=== PATIENT | female | born 1990 | race Two or more races ===

== ENCOUNTER → 2017-12-06 | Emergency (ER) | payer OTHER ==
[~2017-12-06] VITALS: Ht 154.9 cm; Wt 50.8 kg
[~2017-12-06] MED LIST: KETO10TA2 PO; NITROFURANTOIN100 MG PO; URIN D.S. TABL1 EACH PO
== END | disposition home or self-care (01) ==
LOC: ER 08:06
DX: N39.0 Urinary tract infection, site not specified (principal); R10.32 Left lower quadrant pain

== ENCOUNTER → 2020-02-06 | Outpatient (CLI) | payer OTHER | END | disposition home or self-care (01) | LOC: PRENATAL 11:30 | PROVIDERS: ATTEND Obstetrics & Gynecology | DX: O26.843 Uterine size-date discrepancy, third trimester (principal); O36.8131 Decreased fetal movements, third trimester, fetus 1; O36.5931 Maternal care for other known or suspected poor fetal growth, third trimester, fetus 1; O35.0XX1 Maternal care for (suspected) central nervous system malformation in fetus, fetus 1 ==

== ENCOUNTER 2020-02-11 13:02 | Inpatient (IN) | payer OTHER ==
[~2020-02-11] VITALS: Ht 154.9 cm; Wt 68.0 kg
[2020-02-11] MEDS ORDERED: PRENATAL TABLE1 EAC1 PO (13:41)
== END 2020-02-15 13:51 | DRG 807 ==
LOC: LDR 13:02 → OB/GYN 02-12 18:53
PROVIDERS: ADMIT Obstetrics & Gynecology; ATTEND Obstetrics & Gynecology
PROC: 4A1HXCZ Monitoring of Products of Conception, Cardiac Rate, External Approach (ICD-10-PCS; 2020-02-11)
PROC: 10E0XZZ Delivery of Products of Conception, External Approach (ICD-10-PCS; principal; 2020-02-12)
DX: O36.5931 Maternal care for other known or suspected poor fetal growth, third trimester, fetus 1 (principal); Z37.0 Single live birth; Z3A.37 37 weeks gestation of pregnancy

== ENCOUNTER 2021-08-14 09:05 | Emergency (ER) | payer OTHER ==
[~2021-08-14] VITALS: Ht 154.9 cm; Wt 49.9 kg
[~2021-08-14 09:05] MED LIST changes: +PRENATAL TABLE1 EAC1 PO
[2021-08-14] MEDS ORDERED: CIPRO500 MG PO (09:49)
== END 2021-08-14 13:09 | disposition home or self-care (01) ==
LOC: ER 09:05
DX: N39.0 Urinary tract infection, site not specified (principal); N23 Unspecified renal colic

== ENCOUNTER 2022-03-31 09:17 | Emergency (ER) | payer OTHER ==
[~2022-03-31] VITALS: Ht 152.4 cm; Wt 49.9 kg
[~2022-03-31 09:17] MED LIST changes: +CIPRO500 MG PO
== END 2022-03-31 12:56 | disposition home or self-care (01) ==
LOC: ER 09:17
DX: M54.2 Cervicalgia (principal); R30.0 Dysuria

== ENCOUNTER 2022-09-14 08:43 | Emergency (ER) | payer OTHER ==
[~2022-09-14] VITALS: Ht 157.5 cm; Wt 45.4 kg
[2022-09-14] MEDS ORDERED: PEPCID AC20 MG PO (13:18)
[2022-09-14] MEDS ORDERED: ONDANSETRON ODT4 MG PO (13:18)
== END 2022-09-14 13:32 ==
LOC: ER 08:43
DX: K52.9 Noninfective gastroenteritis and colitis, unspecified (principal); Z20.822 Contact with and (suspected) exposure to COVID-19

== ENCOUNTER 2023-01-14 10:40 | Emergency (ER) | payer OTHER ==
[~2023-01-14] VITALS: Ht 154.9 cm; Wt 50.8 kg
[~2023-01-14 10:40] MED LIST changes: +ONDANSETRON ODT4 MG PO; +PEPCID AC20 MG PO
== END 2023-01-14 13:44 | disposition home or self-care (01) ==
LOC: ER 10:40
DX: O26.891 Other specified pregnancy related conditions, first trimester (principal); Z3A.01 Less than 8 weeks gestation of pregnancy; R30.0 Dysuria

== ENCOUNTER 2023-01-19 16:51 | Emergency (ER) | payer OTHER ==
[~2023-01-19] VITALS: Ht 157.5 cm; Wt 53.5 kg
[2023-01-19] MEDS ORDERED: MACRODANTIN100 M1 PO (17:43)
== END 2023-01-19 18:38 | disposition home or self-care (01) ==
LOC: ER 16:51
DX: N39.0 Urinary tract infection, site not specified (principal)

== ENCOUNTER → 2023-01-26 | Emergency (ER) | payer OTHER ==
[~2023-01-26] VITALS: Ht 152.4 cm; Wt 54.4 kg
[~2023-01-26] MED LIST changes: +MACRODANTIN100 M1 PO
== END | disposition left against medical advice (07) ==
LOC: ER 18:38
DX: Z53.21 Procedure and treatment not carried out due to patient leaving prior to being seen by health care provider (principal)

== ENCOUNTER 2023-02-02 17:06 | Emergency (ER) | payer OTHER ==
[~2023-02-02] VITALS: Ht 154.9 cm; Wt 50.8 kg
[2023-02-02] MEDS ORDERED: CEPHALEXIN500 MG PO (17:20)
== END 2023-02-02 19:45 | disposition home or self-care (01) ==
LOC: ER 17:06
PROVIDERS: General Practice
DX: N39.0 Urinary tract infection, site not specified (principal)

== ENCOUNTER 2023-04-21 12:22 | Outpatient (CLI) | payer OTHER ==
[~2023-04-21 12:22] MED LIST changes: +CEPHALEXIN500 MG PO
== END 2023-04-21 14:45 | disposition home or self-care (01) ==
LOC: PRENATAL 12:22
PROVIDERS: ATTEND Obstetrics & Gynecology Maternal & Fetal Medicine
DX: O35.3XX0 Maternal care for (suspected) damage to fetus from viral disease in mother, not applicable or unspecified (principal); O44.00 Complete placenta previa NOS or without hemorrhage, unspecified trimester; Z3A.19 19 weeks gestation of pregnancy

== ENCOUNTER 2023-06-20 13:50 | Outpatient (CLI) | payer OTHER ==
[~2023-06-20 13:50] MED LIST changes: +MACRODANTIN50 MG; +TUSSIN100 MG/51 PO; +ZITHROMAX500 MG PO; +ZYRTEC10 M3 PO
== END 2023-06-20 14:01 | disposition home or self-care (01) ==
LOC: PRENATAL 13:50
PROVIDERS: ATTEND Obstetrics & Gynecology Maternal & Fetal Medicine
DX: O26.849 Uterine size-date discrepancy, unspecified trimester (principal); O43.90 Unspecified placental disorder, unspecified trimester; Z3A.28 28 weeks gestation of pregnancy

== ENCOUNTER 2023-06-24 13:00 | Outpatient (CLI) | payer OTHER ==
[2023-06-24 14:22] LABS: URINE APPEARANCE Cloudy; URINE BILIRRUBIN Negative (NEGATIVE); URINE BLOOD Negative; URINE COLOR Yellow; URINE GLUCOSE Negative (NEGATIVE); URINE LEUKOCYTE Small; URINE NITRATE Negative; URINE PROTEIN 30 (NEGATIVE)
[2023-06-24 14:26] LABS: URINE BACTERIA 2851.3 uL (0.0-1933); URINE EPITHELIAL CELLS 94.1 uL (0.0-38.8); URINE RBC 6.4 uL (0.0-20.8); URINE WBC 168.5 uL (0.0-23.2)
[2023-06-24 14:28] LABS: HEMOGLOBIN 11.6 g/dL (12.0-15.00); MEAN CELL VOLUME 84.5 fL (80.00-100.00); MEAN CORPUSCULAR HEMOGLOBIN 27.9 pg (27.00-32.0); PLATELET COUNT 190 K/uL (150-450); RED BLOOD COUNT 4.14 M/uL (4.00-6.00); RED CELL DISTRIBUTION WIDTH 14.3 % (11.5-14.5)
[2023-06-24 14:48] LABS: ALBUMIN 3.2 gm/dL (3.4-5.0); BILIRUBIN TOTAL 0.63 mg/dL (0.3-1.2); CALCIUM 8.6 mg/dL (8.5-10.1); CREATININE SERUM 0.55 mg/dL (0.55-1.02); GFR 128.92; GLOBULINA 3.6 G/DL (2.4-3.5); POTASSIUM 3.39 mEq/L (3.5-5.1); TOTAL PROTEIN 6.8 gm/dL (6.4-8.2)
== END 2023-06-25 09:54 | disposition home or self-care (01) ==
LOC: OBS/DEL 13:00
PROVIDERS: Obstetrics & Gynecology; ATTEND Obstetrics & Gynecology
DX: O26.893 Other specified pregnancy related conditions, third trimester (principal); K52.89 Other specified noninfective gastroenteritis and colitis; Z3A.28 28 weeks gestation of pregnancy

== ENCOUNTER 2023-08-14 09:56 | Outpatient (CLI) | payer OTHER ==
[2023-08-14] MEDS ORDERED: PRENATAL TABLE1 EAC1 PO (12:56)
[2023-08-15] MEDS ORDERED: MACRODANTIN50 MG PO (13:27)
== END 2023-08-14 09:58 | disposition home or self-care (01) ==
LOC: PRENATAL 09:56
PROVIDERS: ATTEND Obstetrics & Gynecology Maternal & Fetal Medicine
DX: O26.849 Uterine size-date discrepancy, unspecified trimester (principal); O36.8199 Decreased fetal movements, unspecified trimester, other fetus; O43.90 Unspecified placental disorder, unspecified trimester; O60.00 Preterm labor without delivery, unspecified trimester; Z3A.36 36 weeks gestation of pregnancy

== ENCOUNTER 2023-08-14 12:21 | Inpatient (IN) | payer OTHER ==
[~2023-08-14] VITALS: Ht 154.9 cm; Wt 70.8 kg
[2023-08-14] MEDS ORDERED: PRENATAL TABLE1 EAC1 PO (12:56)
[2023-08-14 13:13] LABS: HEMATOCRIT 34.2 % (36.0-45.00); HEMOGLOBIN 11.3 g/dL (12.0-15.00); MEAN CELL VOLUME 82.3 fL (80.00-100.00); MEAN CORPUSCULAR HEMOGLOBIN 27.2 pg (27.00-32.0); MEAN CORPUSCULAR HGB CONC 33.1 g/dl (32.0-36.0); PLATELET COUNT 181 K/uL (150-450); RED BLOOD COUNT 4.16 M/uL (4.00-6.00); RED CELL DISTRIBUTION WIDTH 15.5 % (11.5-14.5)
[2023-08-14 13:58] LABS: URINE APPEARANCE Turbid; URINE BILIRRUBIN Negative (NEGATIVE); URINE BLOOD Large; URINE COLOR Yellow; URINE EPITHELIAL CELLS 95.5 uL (0.0-38.8); URINE LEUKOCYTE Large; URINE NITRATE Positive; URINE RBC 557.7 uL (0.0-20.8); URINE UROBILINOGEN 0.2 E.U./dl
[2023-08-14 14:12] LABS: URINE BACTERIA > 9821.5 uL (0.0-1933); URINE GLUCOSE 100 MG/DL (NEGATIVE); URINE PROTEIN 300 (NEGATIVE); URINE WBC > 5548.3 uL (0.0-23.2)
[2023-08-15] MEDS ORDERED: MACRODANTIN50 MG PO (13:27)
[2023-08-16 21:54] LABS: ABG PH 7.312 (7.35-7.45); ABG pCO2 52.6 mmHg (35-45)
[2023-08-16 21:55] LABS: ABG PO2 24.8 mmHg (80-100); BASE EXCESS -1.1 mmol/l; SaO2 37.7 %; Tco2 27.6 mmol/l; o2 21 %
[2023-08-16 23:12] LABS: HEMATOCRIT 30.4 % (36.0-45.00); HEMOGLOBIN 10.2 g/dL (12.0-15.00); MEAN CELL VOLUME 82.3 fL (80.00-100.00); MEAN CORPUSCULAR HEMOGLOBIN 27.5 pg (27.00-32.0); MEAN CORPUSCULAR HGB CONC 33.4 g/dl (32.0-36.0); PLATELET COUNT 173 K/uL (150-450); RED BLOOD COUNT 3.69 M/uL (4.00-6.00); RED CELL DISTRIBUTION WIDTH 15.5 % (11.5-14.5)
== END 2023-08-18 13:21 | disposition home or self-care (01) | DRG 807 ==
LOC: OBS/DEL 12:21 → OB/GYN 08-15 13:07 → LDR 08-15 13:07 → OB/GYN 08-16 20:05
PROVIDERS: ADMIT Obstetrics & Gynecology; ATTEND Obstetrics & Gynecology
PROC: 4A1HXCZ Monitoring of Products of Conception, Cardiac Rate, External Approach (ICD-10-PCS; 2023-08-15)
PROC: 10E0XZZ Delivery of Products of Conception, External Approach (ICD-10-PCS; principal; 2023-08-16)
DX: O36.5930 Maternal care for other known or suspected poor fetal growth, third trimester, not applicable or unspecified (principal); Z37.0 Single live birth; Z3A.36 36 weeks gestation of pregnancy; Z20.822 Contact with and (suspected) exposure to COVID-19

== ENCOUNTER 2024-03-07 08:07 | Emergency (ER) | payer OTHER ==
[~2024-03-07] VITALS: Ht 154.9 cm; Wt 53.5 kg
[~2024-03-07 08:07] MED LIST changes: +MACRODANTIN50 MG PO
[2024-03-07] MEDS ORDERED: LORazepam 2 MG/ML VIAL ONE (08:53)
[2024-03-07] MEDS ORDERED: LORazepam 2 MG/ML VIAL IV ONE (09:00)
[2024-03-07] MEDS ORDERED: 0.9 % SODIUM CHLORIDE 1,000 ML IV SCH (09:00)
[2024-03-07 09:10] LABS: HEMATOCRIT 38.5 % (36.0-45.00); MEAN CORPUSCULAR HEMOGLOBIN 27.7 pg (27.00-32.0); MEAN CORPUSCULAR HGB CONC 33.8 g/dl (32.0-36.0); PLATELET COUNT 279 K/uL (150-450); RED CELL DISTRIBUTION WIDTH 13.2 % (11.5-14.5)
[2024-03-07 10:14] LABS: CALCIUM 9.7 mg/dL (8.5-10.1); CREATININE SERUM 0.68 mg/dL (0.55-1.02); GFR 100.27; POTASSIUM 3.88 mEq/L (3.5-5.1)
[2024-03-07 10:51] LABS: PH,URINE 6.5 (5.0-8.0); URINE APPEARANCE Cloudy; URINE BILIRRUBIN Negative (NEGATIVE); URINE BLOOD Negative; URINE COLOR Yellow; URINE GLUCOSE Negative (NEGATIVE); URINE KETONE Negative (NEGATIVE); URINE LEUKOCYTE Trace; URINE NITRATE Negative; URINE PROTEIN Negative (NEGATIVE); URINE UROBILINOGEN 0.2 E.U./dl
[2024-03-07 10:54] LABS: URINE BACTERIA 36.5 uL (0.0-1933); URINE EPITHELIAL CELLS 3.8 uL (0.0-38.8); URINE RBC 18.3 uL (0.0-20.8)
[2024-03-07 10:57] LABS: URINE CAST 0.15 uL (0.0-1.40)
== END 2024-03-07 13:59 | disposition home or self-care (01) ==
LOC: ER 08:08
PROVIDERS: Emergency Medicine
DX: F41.8 Other specified anxiety disorders (principal)

== ENCOUNTER 2024-07-08 08:12 | Emergency (ER) | payer OTHER ==
[~2024-07-08] VITALS: Ht 154.9 cm; Wt 49.9 kg
[2024-07-08] MEDS ORDERED: PEPCID AC20 MG PO (09:56)
[2024-07-08] MEDS ORDERED: KETOROLAC TROMETHAMINE 30 MG VIAL IM ONE (10:00)
[2024-07-08] MEDS ORDERED: CEPHALEXIN 500 MG CAPSULE PO ONE (10:00)
== END 2024-07-08 12:24 | disposition home or self-care (01) ==
LOC: ER 08:14
DX: N61.0 Mastitis without abscess (principal)

== ENCOUNTER 2024-09-24 10:02 | Emergency (ER) | payer OTHER ==
[~2024-09-24] VITALS: Ht 154.9 cm; Wt 49.9 kg
== END 2024-09-24 13:09 | disposition home or self-care (01) ==
LOC: ER 10:02
DX: F41.9 Anxiety disorder, unspecified (principal)